=== PATIENT | female | born 1990 | race Caucasian/White ===

== ENCOUNTER → 2017-02-24 | Outpatient (CLI) | payer MEDICAID | LOC: FIMAGING 07:00 | PROVIDERS: ATTEND Family Medicine Sports Medicine | DX: Z98.890 Other specified postprocedural states (principal); M23.91 Unspecified internal derangement of right knee ==

== ENCOUNTER 2018-09-09 15:38 | Emergency (ER) | payer MEDICAID ==
--- NOTE | 2018-09-09 16:00 | EDPHY ---
HPI/HX/ROS/PE/MDM Narrative: CHIEF COMPLAINT: Fever, UTI HISTORY OF PRESENT ILLNESS: This patient is a 27 year old female who presents with fever and recent UTI diagnosis. She has been feeling unwell for six days with dysuria and urinary urgency. Over the last couple days, she has had nausea, right-sided back pain, and general body aches. This morning, she noted she was febrile and went to her primary care provider's office. She was diagnosed with UTI and began a course of Bactrim DS this morning around 9:45am. Around 14:00 today, she was feeling worse and noted her temperature was 102. She did not take any OTC antipyretics. Her significant other at bedside states she had an episode of shaking, and she vomited following this. Her temperature at that time was up to 104, so they present to the ED for evaluation. The patient denies any abnormal vaginal discharge. She denies recent cough, cold, or runny nose. No chest pain, shortness of breath, palpitations, diarrhea, headache, lightheadedness. REVIEW OF SYSTEMS: A comprehensive 10 system review of systems is otherwise negative aside from elements mentioned in the history of present illness and medical decision making. PAST MEDICAL HISTORY: SOCIAL HISTORY: Employed. Friend at bedside. PCP Dr. Leo Henry at [facility]. VITAL SIGNS: Reviewed by me GENERAL: Uncomfortable appearing, hot to touch. Well-developed, well-nourished, no respiratory distress. HEENT: Atraumatic. Eyes: No icterus, no injection. Mouth: moist mucous membranes. No erythema or lesions. Neck: supple with no adenopathy. LUNGS: Clear to auscultation bilaterally, no wheezes, rhonchi or rales. CARDIAC: Regular tachycardia. No rubs, murmurs or gallops. ABDOMEN: RUQ pain with breathing. Soft, nontender, nondistended, bowel sounds normal. BACK: Left CVA tenderness. EXTREMITIES: No trauma. No edema. Range of motion is normal throughout. NEURO: Alert and oriented, grossly nonfocal. SKIN: Hot to touch. Dry, no rash. PSYCHIATRIC: Normal mentation, no agitation. Portions of this note were transcribed by a medical director. I personally performed a history, physical exam, medical decision making, and confirmed accuracy of information the transcribed note. ED Course: 27 y/o female presents following recent UTI diagnosis. She is febrile at triage , 39.4 degrees. Skin is hot to touch on exam. She is tachycardic. Plan to administer 1000mg PO acetaminophen, 600mg PO ibuprofen, and 1L IV NS for antipyretic effects. Plan for chest x-ray, labs including CBC, chemistries, lactic acid, blood cultures, UA, coag panel, bilirubin. Patient qualifies for severe sepsis rule-out under standard ED sepsis protocol. Lactic acid negative. UA positive for UTI. WBC elevated at 14,000. Plan to administer 1gm IV Rocephin. 16:54 Reassessed. She is feeling slightly better following fluid administration. She continues to have cramping abdominal pain and lower back pain. Plan to administer 0.5mg IV Dilaudid for pain relief. 17:35 Reassessed. Plan to discharge home in good condition with prescription for Keflex. Discussed the importance of hydration and fever management. Follow up and return conditions discussed. She is comfortable with this plan. MDM: Differential diagnosis for this patient's presenting complaint was considered including but not limited to lower lobe pneumonia, urinary tract infection, pyelonephritis, kidney stones, viral syndrome, intra-abdominal process. - Data Points Imaging Results: Chest X-Ray 09/09/18 16:07 Impression: No focal pneumonia. Imaging: I viewed and interpreted images myself Laboratory Results: Laboratory Results 09/09/18 16:20 09/09/18 16:20 Medications Given: Discontinued Medications Acetaminophen (Tylenol) 1,000 mg PO EDNOW ONE Stop: 09/09/18 16:10 Last Admin: 09/09/18 16:14 Dose: 1,000 mg Cephalexin (Keflex 500 Mg Prepack#4) 1 btl TAKEHOME EDNOW ONE PRN Reason: Protocol Stop: 09/09/18 18:07 Last Admin: 09/09/18 18:11 Dose: 1 btl Hydromorphone HCl (Dilaudid) 0.5 mg IVP EDNOW ONE Stop: 09/09/18 16:56 Last Admin: 09/09/18 17:14 Dose: Not Given Sodium Chloride (Ns) 1,000 mls @ 0 mls/hr IV ONCE ONE; Wide Open PRN Reason: Protocol Stop: 09/09/18 16:10 Last Admin: 09/09/18 16:31 Dose: 1,000 mls Ceftriaxone Sodium/Dextrose (Rocephin 1 Gm (Premix)) 50 mls @ 100 mls/hr IV EDNOW ONE PRN Reason: Protocol Stop: 09/09/18 17:20 Last Admin: 09/09/18 17:13 Dose: 50 mls Ibuprofen (Motrin) 600 mg PO EDNOW ONE Stop: 09/09/18 16:10 Last Admin: 09/09/18 16:14 Dose: 600 mg General Time Seen by Provider: 09/09/18 15:55 Initial Vital Signs: Initial Vital Signs Temperature (C) 39.4 C H 09/09/18 16:11 Heart Rate 104 H 09/09/18 16:11 Respiratory Rate 18 09/09/18 16:11 Blood Pressure 116/71 09/09/18 16:11 O2 Sat (%) 96 09/09/18 16:11 O2 Delivery Mode Room Air Allergies/Adverse Reactions: No Known Allergies Allergy (Unverified 09/09/18 16:42) Home Medications: Medication Instructions Recorded Herbals/Supplements -Info Only 04/25/16 Augmentin 875 MG TAB (*) 09/09/18 Cephalexin [Keflex (RX)] 500 mg PO TID 7 Days cap 09/09/18 Hydrocodone/APAP 5/325 [[place] 1 tab PO Q6H PRN #10 tab 09/09/18 5/325 (RX)] Departure - Departure Disposition: Home, Routine, Self-Care Clinical Impression: Urinary tract infection, Fever Condition: Good Instructions: Cephalexin (By mouth), Urinary Tract Infection in Women (ED), Fever in Adults (ED) Additional Instructions: 1. Please discontinue Bactrim and take Keflex as prescribed. It is important to take your entire course of antibiotics even if you are feeling better. 2. Stay well hydrated, drinking plenty of fluids. 3. It is important to keep your fever under control - please take Tylenol or Ibuprofen as directed below for fever. You may take [place] as prescribed as needed for severe pain, but do not take this medication with Tylenol as both contain acetaminophen. 4. Follow-up with your primary doctor within 2-3 days. 5. Return to the Emergency Department for fever, worsening pain, flank pain or failure to improve within 72 hours. 6. It is possible that the bacteria causing your infection is resistant to the antibiotic we've placed you on. We have sent a urine for culture, if this comes back with a resistant bacteria, we will call you at the number you provided to us. Adult Pain & Fever Control: We recommend Acetaminophen (Tylenol) and Ibuprofen (Motrin,Advil) for pain and fever control. When fever is high or pain severe, both drugs can be used at the same time, but at different intervals. Please note the time differences. Your dose is: Acetaminophen 650mg every 4 to 6 hours Ibuprofen 600mg every 6-8 hours with food Note: do not take Acetaminophen with Hydrocodone (Vicodin, Lortab) or Oxycodone (Percocet). These medications also contain Acetaminophen. No more than 3000mg of Acetaminophen should be taken in 24 hours (for an adult). Referrals: Leo Henry DO [Primary Care Provider] - As per Instructions Prescriptions: Cephalexin [Keflex (RX)] 500 mg PO TID 7 Days cap Hydrocodone/APAP 5/325 [[place] 5/325 (RX)] 1 tab PO Q6H PRN #10 tab PRN Reason: Pain Report Scribed for: Corina Hennessy Report Scribed by: Zoey Ibrahim Date of Report: 09/09/18 Time of Report: 16:18
[2018-09-09] MEDS ORDERED: ACETAMINOPHEN 500 MG TAB PO ONE (16:09)
[2018-09-09] MEDS ORDERED: IBUPROFEN 600 MG TAB PO ONE (16:09)
[2018-09-09] MEDS ORDERED: NS 1,000 ML IV ONE (16:09)
[2018-09-09 16:35] LABS: PLATELET COUNT 170 10^3/uL (150-400)
[2018-09-09 16:43] LABS: INR 1.17 (0.83-1.16); PROTIME(PATIENT) 15.1 SEC (12.0-15.0)
[2018-09-09] MEDS ORDERED: HYDROmorphONE/DILAUDID 2 MG/ML INJ IVP ONE (16:55)
[2018-09-09] MEDS ORDERED: CEPHALEXIN 500MG PREPACK#4 BTL TAKEHOME ONE (18:06)
[2018-09-09 18:26] VITALS: BP 96/50
== END 2018-09-09 18:26 | disposition home or self-care (01) ==
DX: N39.0 Urinary tract infection, site not specified (principal); E86.9 Volume depletion, unspecified
CPT/HCPCS: 96365; J0696